=== PATIENT | male | born 1970 | race African-American/Black ===

== ENCOUNTER 2022-04-26 15:12 | Emergency (ER) | payer BC, SELFPAY ==
[2022-04-26] MEDS ORDERED: Ketorolac Tromethamine 30 MG/ML VIAL ONE (15:47)
[2022-04-26] MEDS ORDERED: Dexamethasone 10 MG/ML VIAL ONE (15:47)
== END 2022-04-26 16:19 | disposition home or self-care (01) ==
LOC: CSHERS 15:12
DX: M54.50 Low back pain, unspecified (principal); I25.2 Old myocardial infarction; Z86.73 Personal history of transient ischemic attack (TIA), and cerebral infarction without residual deficits; F17.210 Nicotine dependence, cigarettes, uncomplicated; I10 Essential (primary) hypertension
CPT/HCPCS: 96372; 99283; J1100; J1885

== ENCOUNTER 2022-10-13 15:31 | Emergency (ER) | payer BC ==
[2022-10-13 16:13] LABS: #Eosinphils 0.2 10x3/uL (0.0-0.5); #Monocytes 0.5 10x3/uL (0.0-1.1); #Neutrophils 4.5 10x3/uL (1.5-8.4); %Basophils 0.1 % (0.0-2.0); %Eosinophils 2.4 % (0.0-6.0); %Lymphocytes 24.2 % (18.0-47.0); %Monocytes 7.1 % (0.0-10.0); %Neutrophils 66.2 % (40.0-75.0); Hemoglobin 13.8 g/dL (13.5-17.5); Mean Corpuscular HGB CONC 34.5 g/dL (32.0-36.0); Mean Corpuscular Hemoglobin 35.4 pg (27.0-33.0); Mean Corpuscular Volume 102.6 fl (81.2-95.1); Mean Platelet Volume 9.5 fl (7.4-10.4); Platelet Count 230 10x3/uL (150-450); White Blood Cell (WBC) Count 6.7 10x3/uL (3.5-10.5)
[2022-10-13 16:29] LABS: ALT (SGPT) 18 U/L (8-55); AST (SGOT) 23 U/L (5-34); Albumin 4.5 g/dL (3.5-5.0); Alkaline Phosphatase 63 U/L (40-110); Anion Gap 12 mmol/L (10-20); BUN (Urea Nitrogen) 13 mg/dL (8.4-25.7); Bilirubin, Total 1.4 mg/dL (0.2-1.2); Calc. Creatinine Clearance 0 mL/min (70-130); Calcium 10.1 mg/dL (7.8-10.44); Carbon Dioxide 25 mmol/L (22-29); Chloride 108 mmol/L (98-107); Estimated GFR 92; Globulin 2.6 g/dL (2.4-3.5); Glucose 98 mg/dL (70-105); Lipase 11 U/L (8-78); Potassium 4.2 mmol/L (3.5-5.1); Protein, Total 7.1 g/dL (6.0-8.3); Sodium 141 mmol/L (136-145)
[2022-10-13] MEDS ORDERED: Aspirin Chewable 81 MG TAB ONE (17:27)
[2022-10-13] MEDS ORDERED: Nitroglycerin 0.4 MG TAB 1 EACH ONE (17:33)
== END 2022-10-13 18:03 | disposition home or self-care (01) ==
LOC: CSHERS 15:31
DX: R07.9 Chest pain, unspecified (principal); R20.2 Paresthesia of skin; I10 Essential (primary) hypertension; I25.2 Old myocardial infarction; F17.210 Nicotine dependence, cigarettes, uncomplicated
CPT/HCPCS: 71045; 80053; 83690; 83880; 84484; 85025; 93005; 94760

== ENCOUNTER 2022-12-22 11:57 | Emergency (ER) | payer BC ==
[2022-12-22 12:35] LABS: #Eosinphils 0.2 10x3/uL (0.0-0.5); #Monocytes 0.5 10x3/uL (0.0-1.1); #Neutrophils 6.5 10x3/uL (1.5-8.4); %Basophils 0.2 % (0.0-2.0); %Eosinophils 1.8 % (0.0-6.0); %Lymphocytes 16.5 % (18.0-47.0); %Neutrophils 75.4 % (40.0-75.0); Mean Corpuscular HGB CONC 33.9 g/dL (32.0-36.0); Mean Corpuscular Hemoglobin 34.9 pg (27.0-33.0); Mean Corpuscular Volume 103.2 fl (81.2-95.1); Platelet Count 184 10x3/uL (150-450); RBC Distribution Width 11.8 % (11.5-14.5); Red Blood Cell (RBC) Count 3.72 10x6/uL (4.32-5.72); White Blood Cell (WBC) Count 8.6 10x3/uL (3.5-10.5)
[2022-12-22 12:59] LABS: ALT (SGPT) 16 U/L (8-55); AST (SGOT) 22 U/L (5-34); Albumin 3.8 g/dL (3.5-5.0); Alkaline Phosphatase 60 U/L (40-110); Anion Gap 12 mmol/L (10-20); BUN (Urea Nitrogen) 11 mg/dL (8.4-25.7); Bilirubin, Total 0.9 mg/dL (0.2-1.2); Calc. Creatinine Clearance 0 mL/min (70-130); Calcium 8.7 mg/dL (7.8-10.44); Carbon Dioxide 25 mmol/L (22-29); Chloride 107 mmol/L (98-107); Estimated GFR 103; Glucose 115 mg/dL (70-105); Potassium 3.8 mmol/L (3.5-5.1); Protein, Total 5.8 g/dL (6.0-8.3); Sodium 140 mmol/L (136-145)
[2022-12-22] MEDS ORDERED: Aspirin Chewable 81 MG TAB ONE (13:25)
== END 2022-12-22 16:15 | disposition home or self-care (01) ==
LOC: CSHERS 11:57
DX: R07.89 Other chest pain (principal); R42 Dizziness and giddiness; I10 Essential (primary) hypertension; F17.210 Nicotine dependence, cigarettes, uncomplicated
CPT/HCPCS: 71045; 80053; 84484; 85025; 93005

== ENCOUNTER 2024-03-20 16:53 | Emergency (ER) | payer BC, SELFPAY ==
[2024-03-20] MEDS ORDERED: methylPREDNISolone Sod Succ/PF 125 MG/2 ML VIAL ONE (17:16)
[2024-03-20] MEDS ORDERED: diphenhydrAMINE 50 MG/ML VIAL ONE (17:16)
[2024-03-20] MEDS ORDERED: Famotidine/PF 20 mg/2ml Vial ONE (17:17)
== END 2024-03-20 18:08 | disposition home or self-care (01) ==
LOC: CSHERS 16:53
DX: T63.481A Toxic effect of venom of other arthropod, accidental (unintentional), initial encounter (principal); R22.0 Localized swelling, mass and lump, head; I10 Essential (primary) hypertension; F17.210 Nicotine dependence, cigarettes, uncomplicated; Z55.6 Problems related to health literacy
CPT/HCPCS: 96374; 96375; J1200; J2930; S0028

== ENCOUNTER 2024-08-25 11:08 | Emergency (ER) | payer BC, SELFPAY ==
[2024-08-25 11:31] LABS: Bilirubin Neg (Negative); Blood, Urine Negative (Negative); Clarity Clear (Clear); Glucose, Urine (Dipstick) Normal (Negative); Ketone, Urine Negative (Negative); Leukocyte 25 (Negative); Nitrite Negative (Negative); Protein, Urine (Dipstick) 15 mg/dl (Neg-Trace)
[2024-08-25 11:52] LABS: Bacteria/HPF Rare-Few HPF (None Seen); CAUTI Indications for Culture Pelvic or flank pain; RBC/HPF None Seen HPF (0-3); Urine Culture Reflex No No; WBC/HPF 0-3 HPF (0-3)
[2024-08-25] MEDS ORDERED: Lidocaine 4% Patch ONE (12:07)
[2024-08-25] MEDS ORDERED: Methocarbamol 500 MG TAB ONE (12:07)
[2024-08-25] MEDS ORDERED: Ibuprofen 200 MG TAB ONE (12:07)
== END 2024-08-25 12:22 | disposition home or self-care (01) ==
LOC: CSHERS 11:08
DX: M54.6 Pain in thoracic spine (principal); I10 Essential (primary) hypertension; F17.210 Nicotine dependence, cigarettes, uncomplicated
CPT/HCPCS: 81001; 99283

== ENCOUNTER 2024-10-03 07:33 | Emergency (ER) | payer BC | END 2024-10-03 07:58 | disposition home or self-care (01) | LOC: CSHERS 07:33 | DX: B34.9 Viral infection, unspecified (principal); F17.210 Nicotine dependence, cigarettes, uncomplicated; I25.2 Old myocardial infarction; I10 Essential (primary) hypertension | CPT/HCPCS: 99283 ==